=== PATIENT | female | born 1960 | race Caucasian/White ===

== ENCOUNTER 2018-01-16 15:27 | Inpatient (IN) | payer SELFPAY ==
[~2018-01-16] VITALS: Ht 162.6 cm; Wt 61.2 kg
[2018-01-16 15:37] VITALS: BP 118/79
--- NOTE | 2018-01-16 15:44 | NUR ---
PT BIBA TO ER BED 11
--- NOTE | 2018-01-16 15:45 | NUR ---
PT BIBA DUE TO PUBLIC INTOXICATION. PT HAD DRIVEN HERSELF TO THE STORE AND STAFF AT STORE FELT SHE WAS UNSAFE TO DRIVE AND CALLED FOR AUTHORITIES TO TAKE RESIDENT IN AMBULANCE TO ER. 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 SHE IS ALERT TO SELF AND TIME BUT NOT PLACE. SHE ADMITED TO DRINKING 12 BEERS. PT SAID SHE WAS DRINKING BECAUSE SHE WAS SAD OVER THE LOSS OF HER 12 YEATRS AGO , BUT SAID THAT SHE WOULD NOT HURT HERSELF OR ANYONE ELSE. PT IS COPPERATIVE AT THIS LAUREN, SHE ALLOWED STAFF TO PUT HER IN A GOWN TO MONITOR VITAL SIGNS.PT AWAITING MD EVALUATION.
--- NOTE | 2018-01-16 15:50 | NUR ---
DR ORTEGA EVALUATING PT AT THIS TIME.
[2018-01-16] MEDS ORDERED: ONDANSETRON 4 MG/2 ML VIAL IVP ONE (16:00)
[2018-01-16] MEDS ORDERED: NACL 0.9% 1,000 ML IV ONE (16:00)
--- NOTE | 2018-01-16 16:23 | NUR ---
NACL BOLUS AND ZOFRAN ORDERED. PT TOLERANT TO PROCUDRE FOR IV INSERTION. NO COMPLAIOONS OF PAIN PT RESTING IN BED ALERT AND FOLLOWING COMMANDS.
--- NOTE | 2018-01-16 17:00 | NUR ---
PT BECAME MORE AWAKE AND MORE UNCOOPERATIVE SHE WAS REFUSING TO GIVE A URINE SAMPLE AND HAD PULLED OUT HER IV. ABOUT 750MLS WERE INFUSED. PT WAS ASSISTED TO TOILET BUT REFUSED TO GIVE A SAMPLE, SHE DID HOWEVER URINATE ON HER PANTS. PT WAS ESCORTED BACK TO BED WERE SHE SAID SHE WANTED TO GO HO,E BUT WAS REMINDED SHE NEEED A URINE SAMLE AND WAS TOO INTOXICATED TO GO HOME. PT WAS BOOSTED IN BED AND SOON FELL BACK ASLEEP.
[2018-01-16 17:05] LABS: BASOPHILS # (AUTO) 0.1 K/uL (0.00-0.22); HEMATOCRIT 37.2 % (36-48); HEMOGLOBIN 12.4 g/dL (12.0-16.0); LYMPHOCYTES # (AUTO) 2.4 K/uL (2.5-16.5); LYMPHOCYTES % (AUTO) 50.7 % (20.5-51.1); MEAN CORPUSCULAR HEMOGLOBIN 33 pg (27-31); MEAN CORPUSCULAR HGB CONC 33 g/dL (33-37); MEAN CORPUSCULAR VOLUME 98.6 fL (80-94); MONOCYTES # (AUTO) 0.4 K/uL (0.8-1.0); MONOCYTES % (AUTO) 8.9 % (1.7-9.3); NEUTROPHILS # (AUTO) 1.7 K/uL (1.8-7.7); NEUTROPHILS % (AUTO) 37.4 % (42.2-75.2); PLATELET COUNT (AUTO) 176 K/uL (140-450); RED BLOOD CELL COUNT(AUTO) 3.78 MIL/uL (4.20-5.40); RED CELL DISTRIBUTION WIDTH 14.3 % (11.6-13.7); WHITE BLOOD COUNT (AUTO) 4.7 K/uL (4.8-10.8)
[2018-01-16 17:08] LABS: ANION GAP 15.7 (8-16); CARBON DIOXIDE 24.2 mmol/L (21-32); CREATININE 0.8 mg/dL (0.6-1.3); POTASSIUM 3.9 mmol/L (3.5-5.1)
[2018-01-16 17:19] LABS: ALBUMIN 3.3 g/dL (3.4-5.0); TOTAL BILIRUBIN 0.7 mg/dL (0.0-1.0)
--- NOTE | 2018-01-16 18:18 | NUR ---
STAFF AT BEDSIDE ATTEMPTING TO STRAIGHT CATH RESIDENT.
[2018-01-16] MEDS ORDERED: ONDANSETRON 4 MG/2 ML VIAL IVP PRN (18:30)
[2018-01-16] MEDS ORDERED: ACETAMINOPHEN 325 MG TAB PO PRN (18:30)
--- NOTE | 2018-01-16 18:35 | NUR ---
URINE COLLECTED AT BEDSIDE VIA STRAIGHT CATH. 200MLS OF LIGHT YELLOW CLEAR URINE COLLECTED. PT TOLERANT OF PROCEDURE. PT SATED SHE FELT EMBARRESSSED THAT SHE HAD SOILED HER PANTS.
--- NOTE | 2018-01-16 19:50 | NUR ---
Patient will be admitted to care of DR. Alexander. Admited to [facility]. . Belongings list completed. Bedside Report to Lilly GUTIERREZ.
[2018-01-16 19:51] LABS: CHOL/HDL RATIO 2.3 (1-4.5); FREE T4 (FREE THYROXINE) 0.8 ng/dL (0.76-1.46); PHOSPHORUS 3.8 mg/dL (2.5-4.9)
--- NOTE | 2018-01-16 19:55 | NUR ---
PT ARRIVED AT UNIT VIA GURNEY, PT AMBULATED TO BED, REPORT RECEIVED FROM ED NURSE, PT STABLE, NO DISTRESS NOTED, DROWSY, AAOX2, KEEPS FALLING ASLEEP, PT HAS NO IV ACCESS, WILL PUT IN NEW IV, PT ON ROOM AIR NO SOB, ORIENT PT TO ROOM, INITIAL ASSESSMENT DONE, ALL SAFETY PRECAUTION MET, WILL CONTINUE TO MONITOR.
[2018-01-16 19:59] LABS: PROTHROMBIN TIME 11.5 secs (10.8-13.4)
[2018-01-16 20:00] VITALS: BP 119/77
[2018-01-16 20:12] LABS: THYROID STIMULATING HORMONE 1.48 uIU/mL (0.34-3.74)
[2018-01-16] MEDS ORDERED: LORazepam 2 MG/ML VIAL IVP PRN (20:15)
[2018-01-16] MEDS ORDERED: ACETAMINOPHEN 325 MG TAB ONE (20:23)
[2018-01-16] MEDS ORDERED: HYDROcodone/APAP 7.5/325 MG 1 TAB ONE (20:28)
[2018-01-16 21:14] LABS: APPEARANCE,URINE CLEAR (CLEAR); BILIRUBIN,URINE NEGATIVE (NEGATIVE); BLOOD, URINE NEGATIVE (NEGATIVE); COLOR,URINE YELLOW (YELLOW); LEUKOCYTE ESTERASE ,URINE NEGATIVE (NEGATIVE); NITRITE, URINE POSITIVE (NEGATIVE); UGLUCOSE NEGATIVE (NEGATIVE)
[2018-01-16 21:22] LABS: RBC,URINE 0-5 (RARE) /HPF (0-5)
[2018-01-16] MEDS: NACL 0.9% 1,000 ML IV SCH (21:40)
[2018-01-16] MEDS: DOCUSATE SODIUM 100 MG GELCAP PO SCH (21:45)
[2018-01-16] MEDS: LORazepam 1 MG TAB PO SCH (21:45)
--- NOTE | 2018-01-16 21:45 | NUR ---
DUE MEDICATION GIVEN, PT TOLERATED WELL, NO DISTRESS NOTED, CALL LIGHT WITHIN REACH, WILL CONTINUE TO MONITOR.
[2018-01-16 23:22] LABS: BARBITURATE, URINE NEG. ng/ml (NEG <=200); BENZODIAZEPINE, URINE POS. ng/mL (NEG <=200); CANNABINOID, URINE NEG. ng/mL (NEG <=50); COCAINE, URINE NEG. ng/mL (NEG <=300); OPIATE, URINE NEG. ng/mL (NEG <=2000); PHENCYCLIDINE SCREEN,URINE NEG. ng/mL (NEG <=25)
[2018-01-17] VITALS: BP 100/55
--- NOTE | 2018-01-17 00:01 | NUR ---
CHECKED ON PT, PT SLEEPING, NO DISTRESS NOTED, CALL LIGHT WITHIN REACH, WILL CONTINUE TO MONITOR.
--- NOTE | 2018-01-17 03:00 | NUR ---
PT WOKE UP CONFUSED, STATED THAT SHE WAS JUST WITH HER SISTER AND SHE WANTS TO SEE HER SISTER, PT STATED [place] NEED[place] TO GO [place], ORIENT PT TO TIME AND DATE AND WHERE SHE IS, PT STATED UNDERSTANDING, AND WENT BACK TO BED, SITTING, BUT STILL CONFUSED.
[2018-01-17] MEDS: HYDROcodone/APAP 7.5/325 MG 1 TAB PO PRN ×2 (03:05→08:28)
[2018-01-17] MEDS: LORazepam 1 MG TAB PO SCH (03:23)
--- NOTE | 2018-01-17 03:23 | NUR ---
PT STATED FEELING ANXIOUS, TALKED TO DR. CERON REGARDING PT COMPLAINS, STATED IT IS OK TO GIVEN PT'S SCHEDULED 5AM ATIVAN ORDER AT THIS TIME. CONTINUED WITH MEDICATION ADMINISTRATION, PT TOLERATED WELL, NO DISTRESS NOTED, CALL LIGHT WITHIN REACH.
[2018-01-17 04:00] VITALS: BP 126/86
[2018-01-17] MEDS: NACL 0.9% 1,000 ML IV SCH (04:29)
--- NOTE | 2018-01-17 04:45 | NUR ---
PT C/O PAIN NOT SUBSIDING AND FEELING JITTERY, CALLED DR. CERON REGARDING, PT, STATED SHE WILL PUT IN ORDERS, WILL CONTINUE WITH ORDERS.
--- NOTE | 2018-01-17 05:00 | NUR ---
PT REFUSED LIBRIUM THAT ORDERED, PT STATED THAT IT MAKES HER FEEL SICK, NOTIFIED DR. CERON, STATED UNDERSTANDING AND TO GIVE IV ATIVAN ORDERED INSTEAD. IV ATIVAN GIVEN, PT TOLERATED WELL, NO DISTRESS NOTED, CALL LIGHT WITHIN REACH, WILL CONTINUE TO MONITOR.
[2018-01-17] MEDS ORDERED: LEVOFLOXACIN 250 MG/D5 PREMIX 50 ML IV SCH (06:00)
--- NOTE | 2018-01-17 06:00 | NUR ---
DUE MEDICATION GIVEN, PT TOLERATED WELL, PT SLEEPING, NO DISTRESS NOTED, CALL LIGHT WITHIN REACH, WILL CONTINUE TO MONITOR.
--- NOTE | 2018-01-17 07:10 | NUR ---
PATIENT HAS BEEN SCREENED AND CATEGORIZED LOW NUTRITION RISK. PATIENT WILL BE SEEN WITHIN 7 DAYS OF ADMISSION. 01/22/18 LAURI MIN MS, RDN
[2018-01-17 07:18] LABS: BASOPHILS # (AUTO) 0.1 K/uL (0.00-0.22); BASOPHILS % (AUTO) 2.3 % (0.0-2.0); EOSINOPHILS # (AUTO) 0.1 K/uL (0-0.4); EOSINOPHILS % (AUTO) 2.3 % (0.0-4.0); HEMATOCRIT 36.5 % (36-48); HEMOGLOBIN 12.3 g/dL (12.0-16.0); LYMPHOCYTES % (AUTO) 61.5 % (20.5-51.1); MEAN CORPUSCULAR HEMOGLOBIN 33 pg (27-31); MEAN CORPUSCULAR HGB CONC 34 g/dL (33-37); MEAN CORPUSCULAR VOLUME 98.8 fL (80-94); MONOCYTES # (AUTO) 0.3 K/uL (0.8-1.0); MONOCYTES % (AUTO) 7.9 % (1.7-9.3); NEUTROPHILS # (AUTO) 0.8 K/uL (1.8-7.7); PLATELET COUNT (AUTO) 176 K/uL (140-450); RED CELL DISTRIBUTION WIDTH 14.1 % (11.6-13.7); WHITE BLOOD COUNT (AUTO) 3.2 K/uL (4.8-10.8)
--- NOTE | 2018-01-17 07:25 | NUR ---
RECEIVED PATIENT AT BEDSIDE FROM NIGHTSHIFT NURSE. PATIENT IS ASLEEP BUT AROUSABLE TO NAME. PATIENT SHOWS NO SIGNS OF PAIN AT THIS TIME. PATIENT HAS AN IV ON HER LEFT FOREARM 24G INFUSING 100ML/HR. PUT CALL LIGHT WITHIN REACH OF PATIENT. PUT BED IN LOWEST POSITION. UPDATED BOARD IN PATIENT'S ROOM. WILL CONTINUE TO MONITOR PATIENT.
--- NOTE | 2018-01-17 07:25 | NUR ---
ENDORSED PLAN OF CARE TO DAY SHIFT NURSE GALLO RN, PT STABLE, NO DISTRESS NOTED, CALL LIGHT WITHIN REACH.
[2018-01-17 07:31] LABS: ANION GAP 17.4 (8-16); CARBON DIOXIDE 22.5 mmol/L (21-32); CREATININE 0.8 mg/dL (0.6-1.3); POTASSIUM 3.9 mmol/L (3.5-5.1)
[2018-01-17 07:40] LABS: MAGNESIUM 1.9 mg/dL (1.8-2.4); PHOSPHORUS 4.3 mg/dL (2.5-4.9)
[2018-01-17 08:00] VITALS: BP 144/82
--- NOTE | 2018-01-17 08:30 | NUR ---
PATIENT ALERT AND ORIENTED X3. HAD TO REORIENT PATIENT OF WHERE SHE IS AT. PATIENT COMPLAINS OF HEADACHE PAIN. WILL MEDICATE PATIENT.
[2018-01-17] MEDS: DOCUSATE SODIUM 100 MG GELCAP PO SCH (08:34)
--- NOTE | 2018-01-17 08:35 | NUR ---
PATIENT REFUSED ALL AM MEDICATIONS. PATIENT SAID, "I TAKE ALL OF THIS AT HOME. I DONT NEED TO TAKE IT". EXPLAINED TO PATIENT THE BENEFITS OF TAKING THE MEDICATION. PATIENT STILL REFUSED. WILL CONTINUE TO MONITOR PATIENT.
[2018-01-17] MEDS ORDERED: LACTOBACILLUS RHAMNOSUS GG 1 EACH CAP PO SCH (09:00)
[2018-01-17] MEDS ORDERED: FOLIC ACID 1 MG TAB PO SCH (09:00)
[2018-01-17] MEDS ORDERED: THIAMINE 100 MG TAB PO SCH (09:00)
[2018-01-17] MEDS ORDERED: MULTIVITAMIN 1 TAB PO SCH (09:00)
--- NOTE | 2018-01-17 11:00 | NUR ---
PATIENT VERY INSISTENT ON GOING HOME. NOTIFIED DOCTOR. PATIENT IS AMBULATING WELL AROUND UNIT. NO RESPIRATORY DISTRESS OR RESPIRATORY DEPRESSION. WILL CONTINUE TO MONITOR PATIENT.
[2018-01-17 12:00] VITALS: BP 125/77
[2018-01-17] MEDS ORDERED: hydrOXYzine HCL 25 MG TAB PO PRN (12:00)
--- NOTE | 2018-01-17 12:50 | NUR ---
PATIENT ALERT AND ORIENTED X4. NO COMPLAINS OF PAIN AT THIS TIME. WILL CONTINUE TO MONITOR PATIENT.
[2018-01-17] MEDS ORDERED: LORazepam 1 MG TAB PO SCH (13:00)
--- NOTE | 2018-01-17 14:00 | NUR ---
PATIENT VERBALIZED, "I WANT TO GO HOME NOW". WILL FOLLOW UP WITH DOCTOR WITH PATIENT'S PLAN OF CARE.
[2018-01-17] MEDS ORDERED: INUL1CTB PO (14:58)
[2018-01-17] MEDS ORDERED: LEVO750T2 PO ×2 (14:58→15:01)
--- NOTE | 2018-01-17 15:03 | NUR ---
PATIENT GATHERED ALL BELONGINGS. PATIENT WAITING FOR DISCHARGE PAPERS. NO SIGNS OF RESPIRATORY DISTRESS OR RESPIRATORY DEPRESSION. NO COMPLAINTS OF PAIN.
--- NOTE | 2018-01-17 15:15 | NUR ---
PATIENT AWARE OF DISCHARGE INSTRUCTIONS AND PRESCRIPTIONS. PATIENT VERBALIZED UNDERSTANDING WITH DISCHARGE INSTRUCTION. PATIENT ALERT AND ORIENTED X4 AT THIS TIME. DISCONTINUED PATIENT'S IV WITH CATHETER STILL INTACT. PATIENT DOES NOT COMPLAIN OF PAIN. PATIENT GAIT SHOWS NO ABNORMALITIES. TOOK OF PATIENT'S ID BANDS. PATIENT AMBULATED OFF THE UNIT WITH ALL BELONGINGS.
== END 2018-01-17 15:15 | disposition home or self-care (01) | DRG 896 ==
LOC: MED 15:27 → MTU 18:33
PROVIDERS: ADMIT Family Medicine Sports Medicine; ATTEND Family Medicine Sports Medicine
DX: F10.129 Alcohol abuse with intoxication, unspecified (principal); G92 Toxic encephalopathy; E44.0 Moderate protein-calorie malnutrition; N39.0 Urinary tract infection, site not specified; Y90.8 Blood alcohol level of 240 mg/100 ml or more; F32.9 Major depressive disorder, single episode, unspecified; E78.1 Pure hyperglyceridemia; R74.0 Nonspecific elevation of levels of transaminase and lactic acid dehydrogenase [LDH]; Z88.0 Allergy status to penicillin; Z68.23 Body mass index [BMI] 23.0-23.9, adult
CPT/HCPCS: 36415; 71045; 80048; 80053; 80305; 81001; 82150; 83036; 83690; 83735; 83880; 84100; 84439; 84443; 84484; 85025; 85610; 85730; 87081; 87086; 87186; 96361; 96374; 99285; G0482; J1956; J2060; J2405; J7030; Q0092